=== PATIENT | female | born 2000 | race Asian ===

== ENCOUNTER 2020-11-23 12:29 | Emergency (ER) | payer MEDICAID ==
[~2020-11-23] VITALS: Ht 160 cm; Wt 57.7 kg
[2020-11-23 13:32] VITALS: BP 115/69
[2020-11-23] MEDS ORDERED: IBUP-1984 PO (15:02)
== END 2020-11-23 15:24 | disposition home or self-care (01) ==
LOC: ER 12:30
DX: M54.5 Low back pain (principal); R05 Cough; Z79.899 Other long term (current) drug therapy
CPT/HCPCS: 99282